=== PATIENT | male | born 1940 | race Caucasian/White ===

== ENCOUNTER 2020-02-17 06:33 | Emergency (ER) | payer OTHER ==
[2020-02-17 08:52] LABS: Absolute Lymphocytes (CBC) 0.8 K/uL (0.7-4.9); Basophils % 0.6 % (0-1.3); Hematocrit 35.7 % (39.6-49.0); Lymphocytes % 7.9 % (15.3-44.8); MPV 9.5 fL (7.6-11.3); RBC Red Blood Cell Count 4.11 M/uL (4.33-5.43)
[2020-02-17] MEDS ORDERED: MORPHINE 4 MG/ML SYR ONE (09:04)
[2020-02-17] MEDS ORDERED: NA CHLORIDE 0.9% 500 ML ONE ×2 (09:04→10:22)
[2020-02-17] MEDS ORDERED: PANTOPRAZOLE 40 MG INJ ONE (09:04)
[2020-02-17] MEDS ORDERED: ONDANSETRON 4 MG/2 ML VIAL ONE (09:04)
--- NOTE | 2020-02-17 09:04 | ER ---
Nurse's Notes [facility] Name: Juan Pablo Almazan Age: 79 yrs Sex: Male : 1940 Arrival Date: 02/17/2020 Time: 06:37 Bed 4 Private MD: Diagnosis: Abdominal and pelvic pain;Upper GI Bleeding,;Renal Failure Presentation: 02/16 07:12 Chief complaint: Patient states: rectal bleeding x3 days, reports that he saw Dr Milly ross yesterday and has had an US done. Pt also reports chronic back pain and the only thing relieving it right now is CBD oil. Denies n/v. Reports that he is due to have a endoscopy soon. Coronavirus screen: Client denies travel out of the [place] in the last 14 days. At this time, the client does not indicate any symptoms associated with coronavirus-19. Ebola Screen: No symptoms or risks identified at this time. Risk Assessment: Do you want to hurt yourself or someone else? Patient reports no desire to harm self or others. Onset of symptoms is unknown. 07:12 Method Of Arrival: Wheelchair sv 07:12 Acuity: NANI 3 sv 07:16 Initial Sepsis Screen: Does the patient meet any 2 criteria? No. Patient's initial sv sepsis screen is negative. Does the patient have a suspected source of infection? No. Patient's initial sepsis screen is negative. Triage Assessment: 07:12 General: Appears in no apparent distress. uncomfortable, Behavior is calm, cooperative, sv appropriate for age. Pain: Complains of pain in back and abdomen. Neuro: Level of Consciousness is awake, alert, obeys commands, Oriented to person, place, time, situation. Respiratory: Respiratory effort is even, unlabored. GI: Reports upper abdominal pain, rectal bleeding, Patient currently denies nausea, vomiting. Historical: - Allergies: 07:15 No Known Allergies; sv - PMHx: 11:16 Diabetes - IDDM; Hypertension; hb - PSHx: 07:15 ulcer sx; sv - Immunization history:: Adult Immunizations up to date. - Social history:: Smoking status: Patient denies any tobacco usage or history of. Screenin:01 Abuse screen: Denies threats or abuse. Denies injuries from another. Nutritional hb screening: No deficits noted. Tuberculosis screening: No symptoms or risk factors identified. Fall Risk None identified. Assessment: 08:35 General: Appears in no apparent distress. Behavior is calm, cooperative. Pain: Pain hb currently is 10 out of 10 on a pain scale. Neuro: Level of Consciousness is awake, alert, obeys commands, Oriented to person, place, time, situation. Cardiovascular: Patient's skin is warm and dry. Respiratory: Respiratory effort is even, unlabored, Respiratory pattern is regular, symmetrical. GI: Reports upper abdominal pain, rectal bleeding. : No signs and/or symptoms were reported regarding the genitourinary system. EENT: No signs and/or symptoms were reported regarding the EENT system. Derm: Skin is pink, warm \T\ dry. Musculoskeletal: No signs and/or symptoms reported regarding the musculoskeletal system. 09:30 Reassessment: Patient appears in no apparent distress at this time. No changes from hb previously documented assessment. Patient and/or family updated on plan of care and expected duration. Pain level reassessed. 10:26 Reassessment: BP 102/53, HR 113, Dr. Carr notified, repeat ns bolus administered as hb ordered. Awaiting transfer to [facility]. Family remains at bedside. 11:04 Reassessment: Patient appears in no apparent distress at this time. Patient and/or hb family updated on plan of care and expected duration. Pain level reassessed. Patient is alert, oriented x 3, equal unlabored respirations, skin warm/dry/pink. Vital Signs: 07:16 BP 120 / 107; Pulse 88; Resp 18; Temp 98.1; Pulse Ox 99% ; Weight 92.53 kg; Height 5 sv ft. 11 in. (180.34 cm); 08:59 BP 93 / 48; Pulse 89; Resp 16; Pulse Ox 98% on R/A; Pain 10/10; hb 10:09 BP 102 / 53; Pulse 113; Resp 17; Pulse Ox 100% ; sv 10:30 BP 85 / 62; Pulse 98; Resp 18; Pulse Ox 100% on R/A; hb 11:00 BP 104 / 53; Pulse 104; Resp 19; Pulse Ox 98% on R/A; hb 07:16 Body Mass Index 28.45 (92.53 kg, 180.34 cm) sv ED Course: 06:37 Patient arrived in ED. ag3 07:12 Arm band placed on. sv 07:14 Triage completed. sv 07:49 Mika Carr MD is Attending Physician. kdr 08:45 Type And Screen Sent. mh5 08:45 Basic Metabolic Panel Sent. mh5 08:46 Patient has correct armband on for positive identification. Placed in gown. Bed in low mh5 position. Call light in reach. Side rails up X2. Adult w/ patient. Warm blanket given. bus driver/monitor on. Pulse ox on. NIBP on. 08:46 CBC with Diff Sent. mh5 08:46 Hepatic Function Sent. mh5 08:46 Lipase Sent. mh5 08:47 Initial lab(s) drawn, by ct, sent to lab. T\T\S collected, blood band applied to patient. 5 Inserted saline lock: 22 gauge in left antecubital area, using aseptic technique. Blood collected. 08:57 Natividad Alegria RN is Primary Nurse. hb 09:18 Abdomen In Process Unspecified. EDMS Administered Medications: 08:58 Drug: morphine 4 mg Route: IVP; Site: left antecubital; hb 09:36 Follow up: Response: No adverse reaction; Pain is decreased hb 08:58 Drug: Zofran (Ondansetron) 4 mg Route: IVP; Site: left antecubital; hb 09:36 Follow up: Response: No adverse reaction hb 08:58 Drug: ProTONIX 40 mg Route: IVP; Site: left antecubital; hb 09:36 Follow up: Response: No adverse reaction hb 09:30 Drug: NS 0.9% 500 ml Route: IV; Rate: bolus; Site: left antecubital; hb 10:25 Drug: Insulin Regular Human 6 units {Co-Signature: ph (Kat Butler RN).} Route: IVP; hb Site: left antecubital; 10:26 Drug: NS 0.9% 500 ml Route: IV; Rate: bolus; Site: left antecubital; hb Outcome: 09:04 ER care complete, transfer ordered by . kdr 11:16 Patient left the ED. hb Signatures: Dispatcher [employer] EDMS Domonique Zazueta RN RN sv Rittger, Kevin, MD MD kdr Natividad Alegria RN RN Dory Cleveland [facility] Bailee Victoria3 Kat Butler RN ph Corrections: (The following items were deleted from the chart) 07:16 07:12 Chief complaint: Patient states: rectal bleeding started yesterday. Pt also sv reports chronic back pain and the only thing relieving it right now is CBD oil. Denies n/v. sv
--- NOTE | 2020-02-17 09:04 | EDPHYS ---
Physician Documentation [facility] Name: Juan Pablo Almazan Age: 79 yrs Sex: Male : 1940 Arrival Date: 02/17/2020 Time: 06:37 Bed 4 Private MD: ED Physician Mika Carr HPI: 02/16 08:25 This 79 yrs old Male presents to ER via Wheelchair with complaints of kdr Abdominal Pain. 08:25 The patient c/o pain in the upper abdomen for the last three days. He had this similar kdr episode in 1980 when he states that he had an ulcer that ruptured. He is also c/o exacerbation of his back arthritic pain in his back - upper and lower. He took some CDB oil last night for the arthritis pain and had moderate relief. Onset: The symptoms/episode began/occurred gradually, 3 day(s) ago. Severity of symptoms: At their worst the symptoms were moderate severe in the emergency department the symptoms are unchanged. The patient has experienced a previous episode, 1980 when he had rupture of gastric ulcer. Historical: - Allergies: 07:15 No Known Allergies; sv - PMHx: 11:16 Diabetes - IDDM; Hypertension; hb - PSHx: 07:15 ulcer sx; sv - Immunization history:: Adult Immunizations up to date. - Social history:: Smoking status: Patient denies any tobacco usage or history of. ROS: 08:25 Constitutional: Negative for fever, chills, and weight loss, Eyes: Negative for injury, kdr pain, redness, and discharge, ENT: Negative for injury, pain, and discharge, Neck: Negative for injury, pain, and swelling, Cardiovascular: Negative for chest pain, palpitations, and edema, Respiratory: Negative for shortness of breath, cough, wheezing, and pleuritic chest pain, : Negative for injury, bleeding, discharge, and swelling, MS/Extremity: Negative for injury and deformity, Skin: Negative for injury, rash, and discoloration, Neuro: Negative for headache, weakness, numbness, tingling, and seizure activity. Psych: Negative for depression, anxiety, suicide ideation, homicidal ideation, and hallucinations, Allergy/Immunology: Negative for hives, rash, and allergies, Endocrine: Negative for neck swelling, polydipsia, polyuria, polyphagia, and marked weight changes, Hematologic/Lymphatic: Negative for swollen nodes, abnormal bleeding, and unusual bruising. 08:25 Abdomen/GI: Positive for abdominal pain, nausea, rectal bleeding. Exam: 08:25 Constitutional: This is a well developed, well nourished patient who is awake, alert, kdr and in no acute distress. Head/Face: Normocephalic, atraumatic. Eyes: Pupils equal round and reactive to light, extra-ocular motions intact. Lids and lashes normal. Conjunctiva and sclera are non-icteric and not injected. Cornea within normal limits. Periorbital areas with no swelling, redness, or edema. Neck: Trachea midline, no thyromegaly or masses palpated, and no cervical lymphadenopathy. Supple, full range of motion without nuchal rigidity, or vertebral point tenderness. No Meningismus. Chest/axilla: Normal chest wall appearance and motion. Nontender with no deformity. No lesions are appreciated. Cardiovascular: Regular rate and rhythm with a normal S1 and S2. No gallops, murmurs, or rubs. Normal PMI, no JVD. No pulse deficits. Respiratory: Lungs have equal breath sounds bilaterally, clear to auscultation and percussion. No rales, rhonchi or wheezes noted. No increased work of breathing, no retractions or nasal flaring. Back: No spinal tenderness. No costovertebral tenderness. Full range of motion. Skin: Warm, dry with normal turgor. Normal color with no rashes, no lesions, and no evidence of cellulitis. MS/ Extremity: Pulses equal, no cyanosis. Neurovascular intact. Full, normal range of motion. Neuro: Awake and alert, GCS 15, oriented to person, place, time, and situation. Cranial nerves II-XII grossly intact. Motor strength 5/5 in all extremities. Sensory grossly intact. Cerebellar exam normal. Normal gait. Psych: Awake, alert, with orientation to person, place and time. Behavior, mood, and affect are within normal limits. 08:25 Abdomen/GI: Inspection: obese Bowel sounds: diminished, in all quadrants, Palpation: soft, mild abdominal tenderness, in the epigastric area, right upper quadrant and left upper quadrant, Rectal exam: Prostate: normal, rectal tone normal, Stool: guaiac positive, black, green. Vital Signs: 07:16 BP 120 / 107; Pulse 88; Resp 18; Temp 98.1; Pulse Ox 99% ; Weight 92.53 kg; Height 5 sv ft. 11 in. (180.34 cm); 08:59 BP 93 / 48; Pulse 89; Resp 16; Pulse Ox 98% on R/A; Pain 10/10; hb 10:09 BP 102 / 53; Pulse 113; Resp 17; Pulse Ox 100% ; sv 10:30 BP 85 / 62; Pulse 98; Resp 18; Pulse Ox 100% on R/A; hb 11:00 BP 104 / 53; Pulse 104; Resp 19; Pulse Ox 98% on R/A; hb 07:16 Body Mass Index 28.45 (92.53 kg, 180.34 cm) sv MDM: 09:04 Patient medically screened. kdr 09:04 Data reviewed: vital signs, nurses notes, lab test result(s), radiologic studies. 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 02/16 08:22 Order name: Basic Metabolic Panel; Complete Time: 09:44 kdr 02/16 08:22 Order name: CBC with Diff; Complete Time: 09: kdr 02/16 08:22 Order name: Hepatic Function; Complete Time: 09:44 kdr 02/16 08:22 Order name: Lipase; Complete Time: 09:44 kdr 02/16 08:22 Order name: Type And Screen; Complete Time: 09:44 kdr 02/16 09:00 Order name: CREATININE WHOLE BLOOD; Complete Time: 09:01 EDMS 02/16 08:50 Order name: Abdomen ; Complete Time: 10:05 EDMS 02/16 09:01 Order name: Occult Blood--Ancillary; Complete Time: 09:44 bd 02/16 10:24 Order name: Lactate kdr 02/16 08:22 Order name: IV Saline Lock; Complete Time: 08:46 kdr 02/16 08:22 Order name: Labs collected and sent; Complete Time: 08:46 kdr Administered Medications: 08:58 Drug: morphine 4 mg Route: IVP; Site: left antecubital; hb 09:36 Follow up: Response: No adverse reaction; Pain is decreased hb 08:58 Drug: Zofran (Ondansetron) 4 mg Route: IVP; Site: left antecubital; hb 09:36 Follow up: Response: No adverse reaction hb 08:58 Drug: ProTONIX 40 mg Route: IVP; Site: left antecubital; hb 09:36 Follow up: Response: No adverse reaction hb 09:30 Drug: NS 0.9% 500 ml Route: IV; Rate: bolus; Site: left antecubital; hb 10:25 Drug: Insulin Regular Human 6 units {Co-Signature: ph (Kat Butler RN).} Route: IVP; hb Site: left antecubital; 10:26 Drug: NS 0.9% 500 ml Route: IV; Rate: bolus; Site: left antecubital; hb Disposition: 02/17/20 09:04 Transfer ordered to [facility]. Diagnosis are Abdominal and pelvic pain, Upper GI Bleeding,, Renal Failure. - Reason for transfer: Higher level of care. - Accepting physician is [facility]: Dr. Holley. - Condition is Fair. - Problem is new. - Symptoms have improved. Signatures: Dispatcher [employer] EDMI Domonique Zazueta RN RN sv Mika Carr MD MD kdr Natividad Alegria RN RN Kat Butler RN ph Corrections: (The following items were deleted from the chart) 08:50 08:24 Abdomen Pelvis W Con+CT.RAD.BRZ ordered. [facility] EDMI 10:25 09:04 02/17/2020 09:04 Transfer ordered to [facility]. kdr Diagnosis is Abdominal and pelvic pain; Upper GI Bleeding,; Renal Failure. Reason for transfer: Higher level of care. Accepting physician is [facility]. Condition is Fair. Problem is new. Symptoms have improved. kdr 11:16 10:25 02/17/2020 09:04 Transfer ordered to [facility]. hb Diagnosis is Abdominal and pelvic pain; Upper GI Bleeding,; Renal Failure. Reason for transfer: Higher level of care. Accepting physician is [facility]: Dr. Holley. Condition is Fair. Problem is new. Symptoms have improved. kdr
[2020-02-17 09:12] LABS: Albumin 3.8 g/dL (3.4-5.0); Bilirubin Direct 0.2 mg/dL (0-0.2); Bilirubin Total 0.5 mg/dL (0.2-1.0); Potassium 4.5 mmol/L (3.5-5.1); Protein, Total 7.9 g/dL (6.4-8.2)
--- NOTE | 2020-02-17 09:55 | RAD REPORT ---
EXAM DESCRIPTION: CT - Abdomen Pelvis Wo Contrast - 02/17/2020 9:18 am CLINICAL HISTORY: Abdominal pain /rectal bleeding COMPARISON: None TECHNIQUE: Computed axial tomography of the abdomen and pelvis was obtained. IV and oral contrast we re not requested. All CT scans are performed using dose optimization technique as appropriate and may include automated exposure control or mA/KV adjustment according to patient size. FINDINGS: The evaluation of solid organs, vessels and bowel is limited secondary to the lack of con trast administration. Left lower lobe bronchiectasis. Cholelithiasis. Gallbladder wall is not thickened. Fatty liver. Left and caudate lobes the liver are prominent. Splenic granulomata. The pancreas, adrenals appear grossly normal Renal arterial calcifications. No hydronephrosis. Atherosclerotic disease. The prostate gland is mildly enlarged. 17 millimeter soft tissue structure is either abuts or is pres ent within the posterior bladder. The appendix is normal. There is no evidence of diverticulitis. 17 millimeter fatty structure adjacen t to the left colon probably the sequela of prior epiploic appendagitis Calcified periesophageal lymph node. Small pericardial effusion versus thickening IMPRESSION: Cholelithiasis without cholecystitis Fatty liver. Left and caudate lobes are prominent which may indicate chronic disease A 17 millimeter soft tissue structure either abuts or is present within the posterior bladder. It is uncertain whether this represents prostatic tissue or bladder mass. Bladder ultrasound with the bladd er distended should be helpful for further evaluation
[2020-02-17] MEDS ORDERED: INSULIN -REGULAR HUMAN 50 UNIT/0.5 ML ML ONE (10:29)
[2020-02-17 11:23] VITALS: TEMP 98.1
[2020-02-17 11:29] VITALS: BP 104/53; O2SAT 98
== END 2020-02-17 11:16 | disposition short-term general hospital (02) ==
LOC: ER 06:33
DX: K92.2 Gastrointestinal hemorrhage, unspecified (principal); E11.22 Type 2 diabetes mellitus with diabetic chronic kidney disease; N18.9 Chronic kidney disease, unspecified; I12.9 Hypertensive chronic kidney disease with stage 1 through stage 4 chronic kidney disease, or unspecified chronic kidney disease
CPT/HCPCS: 85025; 80048; 36415; 86900; 86850; 82565; 86901; 80076; 83605; 82272; 83690; 74176; 96375; 96374; 99284; C9113; J7040 ×2; J2405